=== PATIENT | male | born 1965 | race Caucasian/White ===

== ENCOUNTER 2023-07-07 02:45 | Emergency (ER) | payer BC, MEDICAID ==
[~2023-07-07] VITALS: Ht 172.7 cm; Wt 77.1 kg
[2023-07-07 02:53] VITALS: BP_SYST 199; PULSE 67; RESP 16; TEMP 97.9; O2SAT 99
[2023-07-07] MEDS ORDERED: KETOROLAC TROMETHAMINE 60 MG/2 ML VIAL IM ONE (03:18)
[2023-07-07] MEDS ORDERED: IBUP-1970 PO (03:21)
[2023-07-07] MEDS ORDERED: GABA-529 PO (03:21)
[2023-07-07] MEDS ORDERED: ACYC-133 PO (03:21)
[2023-07-07] MEDS ORDERED: HYDR-3927 PO (03:21)
[2023-07-07] MEDS: KETOROLAC TROMETHAMINE 60 MG/2 ML VIAL IM ONE (03:22)
[2023-07-07 03:35] VITALS: BP_SYST 161; PULSE 87; RESP 18; TEMP 98.2; O2SAT 99
== END 2023-07-07 03:35 | disposition home or self-care (01) ==
LOC: SED 02:45
DX: B02.9 Zoster without complications (principal); Z79.899 Other long term (current) drug therapy
CPT/HCPCS: 99283; 96372; J1885